=== PATIENT | female | born 1980 | race African-American/Black ===

== ENCOUNTER 2017-04-09 09:02 | Emergency (ER) | payer SELFPAY ==
[~2017-04-09] VITALS: Ht 167.6 cm; Wt 69.9 kg
--- NOTE | 2017-04-09 09:45 | PHYS DOC ---
Past Medical History Past Medical History: Anemia Past Surgical History: No Surgical History Alcohol Use: None Drug Use: None Adult General Chief Complaint Chief Complaint: VAGINAL BLEEDING HPI HPI Patient is a 36 year old female with history of anemia who presents today complaining of vaginal bleeding in . She is a 4 para 2 with one elective . She states the day before yesterday she had sex with the , patient states the next day which is yesterday she noted light spotting. She states today she noted small amount of blood when she wiped herself. Patient denies any abdominal pain. Denies any urgency frequency dysuria. She states she saw her PRIVATE SECRETARY in February and has another appointment in 2-3 weeks. She states she is currently [address] Bargre at [facility]. Review of Systems Review of Systems Constitutional: Denies fever or chills [] Eyes: Denies change in visual acuity, redness, or eye pain [] HENT: Denies nasal congestion or sore throat [] Respiratory: Denies cough or shortness of breath [] Cardiovascular: No additional information not addressed in HPI [] GI: Reports vaginal bleeding in . Denies abdominal pain, nausea, vomiting, bloody stools or diarrhea [] : Denies dysuria or hematuria [] Musculoskeletal: Denies back pain or joint pain [] Integument: Denies rash or skin lesions [] Neurologic: Denies headache, focal weakness or sensory changes [] All other systems were reviewed and found to be within normal limits, except as documented in this note. Allergies Allergies Allergies Coded Allergies Type Severity Reaction Last Updated Verified No Known Drug Allergies 10/24/13 No Physical Exam Physical Exam Constitutional: Well developed, well nourished, no acute distress, non-toxic appearance. [] HENT: Normocephalic, atraumatic, bilateral external ears normal, oropharynx moist, no oral exudates, nose normal. [] Eyes: PERRLA, EOMI, conjunctiva normal, no discharge. [] Neck: Normal range of motion, no tenderness, supple, no stridor. [] Cardiovascular:Heart rate regular rhythm, no murmur [] Lungs & Thorax: Bilateral breath sounds clear to auscultation [] Abdomen: Gravid abdomen. Bowel sounds normal, soft, no tenderness, no masses, no pulsatile masses. [] Pelvic exam External pelvic appears normal. Cervix is closed, no CMT. No adnexal tenderness. Trace amount of brownish discharge in the vaginal vault consistent with spotting. Skin: Warm, dry, no erythema, no rash. [] Back: No tenderness, no CVA tenderness. [] Extremities: No tenderness, no cyanosis, no clubbing, ROM intact, no edema. [] Neurologic: Alert and oriented X 3, normal motor function, normal sensory function, no focal deficits noted. [] Psychologic: Affect normal, judgement normal, mood normal. [] Current Patient Data Vital Signs Vital Signs Date Time Temp Pulse Resp B/P (MAP) Pulse Ox O2 Delivery O2 Flow Rate FiO2 04/09/17 09:19 98.1 95 18 114/72 (86) 100 Room Air 98.1 Lab Values Laboratory Tests Test 04/09/17 09:30 04/09/17 09:50 Urine Collection Type Unknown Urine Color Yellow Urine Clarity Clear Urine pH 6.5 Urine Specific Morton 1.025 Urine Protein Negative mg/dL (NEG-TRACE) Urine Glucose (UA) Negative mg/dL (NEG) Urine Ketones (Stick) Negative mg/dL (NEG) Urine Blood Large (NEG) Urine Nitrite Negative (NEG) Urine Bilirubin Negative (NEG) Urine Urobilinogen Dipstick 1.0 mg/dL (0.2 mg/dL) Urine Leukocyte Esterase Small (NEG) Urine RBC 3-5 /HPF (0-2) Urine WBC 5-10 /HPF (0-4) Urine Squamous Epithelial Cells Many /LPF Urine Bacteria Many /HPF (0-FEW) Urine Mucus Marked /LPF White Blood Count 4.8 x10^3/uL (4.0-11.0) Red Blood Count 3.25 x10^6/uL (3.50-5.40) L Hemoglobin 10.5 g/dL (12.0-15.5) L Hematocrit 30.5 % (36.0-47.0) L Mean Corpuscular Volume 94 fL (79-100) Mean Corpuscular Hemoglobin 32 pg (25-35) Mean Corpuscular Hemoglobin Concent 34 g/dL (31-37) Red Cell Distribution Width 12.7 % (11.5-14.5) Platelet Count 174 x10^3/uL (140-400) Neutrophils (%) (Auto) 66 % (31-73) Lymphocytes (%) (Auto) 24 % (24-48) Monocytes (%) (Auto) 10 % (0-9) H Eosinophils (%) (Auto) 1 % (0-3) Basophils (%) (Auto) 0 % (0-3) Neutrophils # (Auto) 3.2 x10^3uL (1.8-7.7) Lymphocytes # (Auto) 1.1 x10^3/uL (1.0-4.8) Monocytes # (Auto) 0.5 x10^3/uL (0.0-1.1) Eosinophils # (Auto) 0.0 x10^3/uL (0.0-0.7) Basophils # (Auto) 0.0 x10^3/uL (0.0-0.2) Maternal Serum HCG Beta Subunit 76550 mIU/mL (0-5) H Sodium Level 140 mmol/L (136-145) Potassium Level 4.0 mmol/L (3.5-5.1) Chloride Level 106 mmol/L (98-107) Carbon Dioxide Level 23 mmol/L (21-32) Anion Gap 11 (6-14) Blood Urea Nitrogen 10 mg/dL (7-20) Creatinine 0.6 mg/dL (0.6-1.0) Estimated GFR (Cockcroft-Gault) 137.7 Glucose Level 80 mg/dL (70-99) Calcium Level 8.5 mg/dL (8.5-10.1) Laboratory Tests 04/09/17 09:50 Laboratory Tests 04/09/17 09:50 Microbiology 04/09/17 Wet Prep - Final, Complete EKG EKG [] Radiology/Procedures Radiology/Procedures []PROCEDURE: OB <14 WKS W/TV Obstetrical ultrasound, 04/09/2017: History: , vaginal bleeding Transabdominal and transvaginal scans were obtained. There is a single intrauterine fetus demonstrating a crown-rump length of 6.7 cm. This is compatible with a gestational age of 13 weeks and yields a sonographic EDC of 10/15/2017. This correlates well with the EDC of 10/17/2017 established on the previous ultrasound exam of 03/04/2017. Normal activity and heart motion are seen. The heart rate is 158 bpm. The developing placenta lies posteriorly. A normal amount of amniotic fluid is evident. No subchorionic hemorrhage is evident. The cervical length was estimated at 5 cm. The ovaries are of normal size. Blood flow is present in the ovaries. No adnexal mass is seen. No free fluid is evident in the pelvis. IMPRESSION: Single viable intrauterine fetus of 13 weeks gestational age as described above, demonstrating satisfactory growth since 03/04/2017. DICTATED and SIGNED BY: LOGAN CARTY MD DATE: 04/09/17 1037 CC: CONNOR RODRIGUEZ APRN; NON,STAFF; UNKNOWN PCP NAME ~ Course & Med Decision Making Course & Med Decision Making Pertinent Labs and Imaging studies reviewed. (See chart for details) This is a 36-year-old female patient presenting to the ED with vaginal bleeding in . On pelvic exam she was spotting. Patient's labs are negative for any acute findings. Urine appears contaminated and will send for culture. OB ultrasound was noted for a single IUP with a heart rate of 158, 13 weeks [employer] demonstrating satisfactory growth. Blood group O+. Spoke with patient's OB Dr. Barger at [facility] [phone] who requested was discharged patient and she can follow-up with the clinic on Wednesday next week. Patient was instructed to maintain pelvic rest including no sex. She was provided return precautions and discharged in stable condition. Dragon Disclaimer Dragon Disclaimer This electronic medical record was generated, in whole or in part, using a voice recognition dictation system. Departure Departure Impression: Primary Impression: Vaginal bleeding in patient at less than 20 weeks gestation Disposition: 01 HOME, SELF-CARE Condition: STABLE Referrals: UNKNOWN PCP NAME (PCP) Follow up with Dr. Xochilt marti OBGYN next week Patient Instructions: Vaginal Bleeding During , Second Trimester Additional Instructions: You were seen with vaginal bleeding in . Your ultrasound shows you're 13 weeks and your baby is doing well. Please maintain pelvic rest this includes no sexual activity until seen by the PRIVATE SECRETARY. No strenuous activities. Dr. Barger your PRIVATE SECRETARY stated they will see you Wednesday next week. Call the office on Wednesday or sometime this afternoon to confirm your appointment. Return to the ED at any point your symptoms worsen or you have new concerning symptoms. CONNOR RODRIGUEZ APRN Apr 09, 2017 09:45
[2017-04-09 09:55] LABS: BILIRUBIN,URINE NEGATIVE (NEG); GLUCOSE,URINE NEGATIVE (NEG); NITRITE,URINE NEGATIVE (NEG); PH,URINE 6.5; PROTEIN,URINE NEGATIVE (NEG-TRACE)
[2017-04-09 09:55] LABS: BASO % 0 % (0-3); EOS % 1 % (0-3); HEMATOCRIT 30.5 % (36.0-47.0); HEMOGLOBIN 10.5 g/dL (12.0-15.5); LYMPH # 1.1 x10^3/uL (1.0-4.8); LYMPH % 24 % (24-48); MEAN CORPUSCULAR HEMOGLOBIN 32 pg (25-35); MEAN CORPUSCULAR HGB CONC 34 g/dL (31-37); MEAN CORPUSCULAR VOLUME 94 fL (79-100); MONO % 10 % (0-9); NEUT % 66 % (31-73); PLATELET COUNT 174 x10^3/uL (140-400); RED BLOOD COUNT 3.25 x10^6/uL (3.50-5.40); RED CELL DISTRIBUTION WIDTH 12.7 % (11.5-14.5); WHITE BLOOD COUNT 4.8 x10^3/uL (4.0-11.0)
[2017-04-09 10:07] LABS: CALCIUM 8.5 mg/dL (8.5-10.1); CREATININE 0.6 mg/dL (0.6-1.0); GFR 137.7
[2017-04-09 10:09] LABS: BACTERIA,URINE MANY /HPF (0-FEW); SQUAMOUS EPITHELIAL CELL,UR MANY /LPF
--- NOTE | 2017-04-09 10:47 | RAD ---
Obstetrical ultrasound, 04/09/2017: History: , vaginal bleeding Transabdominal and transvaginal scans were obtained. There is a single intrauterine fetus demonstrating a crown-rump length of 6.7 cm. This is compatible with a gestational age of 13 weeks and yields a sonographic EDC of 10/15/2017. This correlates well with the EDC of 10/17/2017 established on the previous ultrasound exam of 03/04/2017. Normal activity and heart motion are seen. The heart rate is 158 bpm. The developing placenta lies posteriorly. A normal amount of amniotic fluid is evident. No subchorionic hemorrhage is evident. The cervical length was estimated at 5 cm. The ovaries are of normal size. Blood flow is present in the ovaries. No adnexal mass is seen. No free fluid is evident in the pelvis. IMPRESSION: Single viable intrauterine fetus of 13 weeks gestational age as described above, demonstrating satisfactory growth since 03/04/2017.
[2017-04-09 12:23] VITALS: BP 118/69
== END 2017-04-09 12:23 | disposition home or self-care (01) ==
LOC: ER 09:02
DX: O20.9 Hemorrhage in early pregnancy, unspecified (principal); Z3A.13 13 weeks gestation of pregnancy
CPT/HCPCS: 36415; 76801; 76817; 80048; 81001; 84702; 85025; 86850; 86900; 86901; 87086; 87491; 87591; 99285; Q0111